=== PATIENT | male | born 1990 | race Caucasian/White ===

== ENCOUNTER 2023-05-19 20:17 | Emergency (ER) | payer OTHER ==
[~2023-05-19] VITALS: Ht 190.5 cm; Wt 100.7 kg
[~2023-05-19 20:17] MED LIST: DOLOGEN CAPLET1 TAB PO
[2023-05-20] MEDS ORDERED: PHENAGIL TABLE1 EACH PO (02:00)
[2023-05-20] MEDS ORDERED: ORASEP SPRAY30 ML MM (02:00)
== END 2023-05-20 02:10 | disposition home or self-care (01) ==
LOC: ER 20:17
DX: J10.1 Influenza due to other identified influenza virus with other respiratory manifestations (principal); Z88.6 Allergy status to analgesic agent; Z20.822 Contact with and (suspected) exposure to COVID-19

== ENCOUNTER 2023-06-23 09:54 | Emergency (ER) | payer OTHER ==
[~2023-06-23] VITALS: Ht 190.5 cm; Wt 99.8 kg
[~2023-06-23 09:54] MED LIST changes: +ORASEP SPRAY30 ML MM; +PHENAGIL TABLE1 EACH PO
[2023-06-23] MEDS ORDERED: NORFLEX100MG PO (14:55)
== END 2023-06-23 15:20 | disposition home or self-care (01) ==
LOC: ER 09:54
DX: M94.0 Chondrocostal junction syndrome [Tietze] (principal); Z88.0 Allergy status to penicillin; Z88.6 Allergy status to analgesic agent

== ENCOUNTER 2023-12-18 22:50 | Emergency (ER) | payer OTHER ==
[~2023-12-18] VITALS: Ht 190.5 cm; Wt 99.8 kg
[~2023-12-18 22:50] MED LIST changes: +NORFLEX100MG PO
[2023-12-19] MEDS ORDERED: ONDANSETRON 4 MG TAB.RAPDIS PO STA (01:09)
[2023-12-19 01:18] LABS: HEMATOCRIT 40.7 % (39.0-48.0); HEMOGLOBIN 14.3 g/dL (13-16.00); MEAN CELL VOLUME 88.5 fL (80.0-100.00); MEAN CORPUSCULAR HEMOGLOBIN 31.1 pg (27.00-32.0); MEAN CORPUSCULAR HGB CONC 35.1 g/dl (32.0-36.0); PLATELET COUNT 208 K/uL (150-450)
[2023-12-19] MEDS ORDERED: AZITHROMYCIN 500 MG TABLET PO STA (03:16)
[2023-12-19] MEDS ORDERED: ZITHROMAX500 MG PO (03:21)
== END 2023-12-19 03:26 ==
LOC: ER 22:51
DX: J02.9 Acute pharyngitis, unspecified (principal); Z88.6 Allergy status to analgesic agent; Z20.822 Contact with and (suspected) exposure to COVID-19